=== PATIENT | male | born 1950 | race Caucasian/White ===

== ENCOUNTER 2020-09-02 15:49 | Outpatient (CLI) | payer MEDICARE, SELFPAY ==
[2020-09-02 16:30] LABS: C Reactive Protein 40.4 mg/L (0.0-4.9); Lactate Dehydrogenase 294 U/L (135-225)
[2020-09-03 15:12] LABS: D Dimer 2.35 ug/mIFEU (0-0.59)
== END 2020-09-02 15:50 | disposition home or self-care (01) ==
LOC: LAB 15:55
PROVIDERS: Visit Provider Family Medicine
DX: U07.1 COVID-19 (principal); J96.01 Acute respiratory failure with hypoxia
CPT/HCPCS: 83615; 85378; 86140